=== PATIENT | male | born 1995 | race African-American/Black ===

== ENCOUNTER 2018-01-04 16:23 | Emergency (ER) | payer OTHER ==
[~2018-01-04] VITALS: Ht 180.3 cm; Wt 84.0 kg
[2018-01-04 16:40] VITALS: BP 124/56; PULSE 119; RESP 16; TEMP 98.9; O2SAT 97
[2018-01-04] MEDS ORDERED: KETOROLAC TROMETHAMINE 60 MG/2 ML (IM) VIAL IM ONE (17:15)
[2018-01-04] MEDS ORDERED: SERO300T PO (17:23)
[2018-01-04] MEDS ORDERED: MIRT30TA PO (17:23)
[2018-01-04] MEDS ORDERED: GABA300C5 PO (17:23)
[2018-01-04] MEDS ORDERED: DIAZ2 PO (17:23)
[2018-01-04] MEDS ORDERED: LORA-474 PO (17:23)
[2018-01-04] MEDS ORDERED: DIAZ2TAB PO (17:35)
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
[2018-01-04 18:17] VITALS: BP 124/65; PULSE 100; RESP 18; O2SAT 98
== END 2018-01-04 18:23 | disposition home or self-care (01) ==
LOC: PHED 16:23
DX: F41.9 Anxiety disorder, unspecified (principal); M79.1 Myalgia; F32.9 Major depressive disorder, single episode, unspecified; M79.671 Pain in right foot; V49.49XA Driver injured in collision with other motor vehicles in traffic accident, initial encounter
CPT/HCPCS: 96372; 99283; J1885